=== PATIENT | female | born 1975 | race Caucasian/White ===

== ENCOUNTER 2022-05-02 09:47 | Day surgery (SDC) | payer OTHER, SELFPAY ==
[2022-04-26 08:35] LABS: Hematocrit 37.2 % (37-47); Hemoglobin 11.9 g/dL (12.0-15.0); Mean Corpuscular Hgb 29.7 pg (27.0-32.0); Mean Corpuscular Volume 92.8 fL (81-99); Mean Platelet Vol. 9.3 fl (6.2-12.0); Platelet Count 305 K/mm3 (150-450); RBC Distribution Width CV 13.9 % (11.6-14.6); RBC Distribution Width SD 47.8 fl (35.1-43.9); Red Blood Count 4.01 M/mm3 (4.2-5.4); White Blood Count 9.2 K/mm3 (4.4-11.0)
--- NOTE | 2022-05-02 | EMB_PTH ---
PATIENT: RACHEL ARRIAGA LOC: [facility] [place] U#:[id number] AGE/SX: 47/F ROOM: RE05/02/[address]: Dr. Kerry Brown DO : 1975 BED: DIS: 05/02/2022 SPEC #: [id number] RECD: 05/02/22 13:26 STATUS: EDITH KYLEE #: [id number] RAFAT: 05/02/22 00:[address]: Kerry Brown DEPT: SURGICAL PATHOLOGY RECD BY: Bobby Sheffield ENTERED: 05/02/22 13:26 SP TYPE: ENDOM BX/C CLINT DR: Dr. Alberto Greene MD Tissues: Endometrium, NOS Procedures: Surgery Specimen Level IV HEADER OPERATION: Hysteroscopy, D & C, IUD insertion PRE-OP DIAGNOSIS: Abnormal uterine bleeding, polyp TISSUE SUBMITTED: Endometrial curettings MICROSCOPIC DIAGNOSIS Endometrial curettings: Simple endometrial hyperplasia without atypia. Fragments of benign ecto- and endocervical mucosa with chronic inflammation. TONA:rodnye 05/03/2022 MICROSCOPIC DESCRIPTION Slides are reviewed. GROSS DESCRIPTION Received in fixative is one container labeled with the patient's name and designated endometrial curettings. The specimen consists of multiple fragments of pink hemorrhagic soft tissue that in aggregate measure 5 x 3 x 0.2 cm. The specimen is totally submitted in two cassettes. / TONA:rodney 05/02/2022 TC:5 CPT: 90340
[2022-05-02 10:19] LABS: Internal QC Validated? YES +Cl - CLEAR BKGD; Pregnancy, Urine Negative Negative
[2022-05-02 10:20] VITALS: BP 122/71; PULSE 86; RESP 16; TEMP 36.8; O2SAT 99; BMI 39.8
[2022-05-02] MEDS: Lactated Ringers 1,000 ML 15 ML IV (10:27)
[2022-05-02 10:56] LABS: Bedside Glucose 102 mg/dL (74-106)
[2022-05-02] MEDS: Lidocaine 1% (20 ml mdv) 20 ML Vial (12:14)
--- NOTE | 2022-05-02 12:27 | DCINST_ITS ---
Discharge Instructions Diet Discharge Diet: No restrictions Activity Discharge Activity: May Drive (once you are more than 24 hours out from surgery) and May Shower (once you are more than 24 hours out from surgery) May resume sexual activity in: 1 week (no tampons, intercourse, hot tubs, baths, or pools) Weight Bearing Status: Weight bearing as tolerated Lifting Restrictions: none Dressing / Incision Call your doctor if you observe: Fever of 101 or Higher, Coldness, Increased Pain, Numbness or Tingling, Change in Color, Inability to urinate, Inability to have a bowel movement, Using more than 1 pad per hour, Shortness of breath, Dizziness, Fainting spells, Swelling in the ankles, Chest pain, Increased palpitations (irregular heartbeat), Calf discomfort and Uncontrolled pain Follow Up Care Please Follow Up With: Kerry Brown DO When: 1-2 weeks Test Results: Test results from this visit will be discussed in further detail at your follow- up appointment, if applicable. Discharge Plan Admission Primary Reason for Your Visit: surgery Attending Provider: Kerry Brown Primary Care Provider: Alberto Greene Instructions Patient Instructions: Dilation and Curettage Discharge Orders/Prescriptions Prescriptions: New ibuprofen 600 mg tablet 600 mg PO Q6H PRN (Reason: pain) Qty: 30 0RF Continued loratadine-pseudoephedrine [Claritin-D 24 Hour] 10-240 mg Tablet Extended Release 24 Hr 1 tab PO DAILY omeprazole 20 mg Capsule,Delayed Release(Dr/Ec) 20 mg PO DAILY mupirocin 2 % ointment 3 applic TOPICAL TID escitalopram oxalate 10 mg tablet 10 mg PO DAILY Trulicity 0.75 mg/0.5 mL pen injector 7.5 mg SUBCUT QWEEK Label Comments: INJECT 0.75 MG SUBCUTANEOUSLY ONE TIME A WEEK. INJECT DOSE ONCE PER WEEK. DISCARD PEN AFTER Rx Instructions: sundays Referrals / Follow Up: Alberto Greene MD [Primary Care Provider] - Disposition Disposition (needs filled in before D/C Order can be placed): Home, Self Care
--- NOTE | 2022-05-02 12:31 | OP.PCM_ITS ---
Problems Associated Problem List Diagnoses (1) DUB (dysfunctional uterine bleeding): Report of Operation Date of Procedure: 05/02/22 Pre-Operative Diagnosis: DUB Post-Operative Diagnosis: DUB Surgery/Procedure Performed:: Hysteroscopy, D&C, Mirena IUD insertion Description of Surgical Findings:: Uterus sounded to 10 cm. Retroverted uterus. No polyps or fibroids noted. Surgeon: Kerry Brown Type of Anesthesia: MAC Special Medications: None Specimen's removed: Endometrial curretings Drains: None Estimated Blood Loss (mL): < 50 cc Fluids Replaced: 150 cc deficit Description of Procedure: The patient was taken to the operating room where MAC anesthesia was induced and found to be adequate. She was prepped and draped in the dorsal lithotomy position using yellowfin stirrups. A weighted speculum was placed in the vagina to expose the cervix. The anterior lip of the cervix was grasped with single- tooth tenaculum. 1% lidocaine was injected circumferentially around the cervix. The cervix was serially dilated to accommodate the Symphion hysteroscope. The Symphion hysteroscope was advanced to the fundus of the uterus. Normal saline was used as distention media to distend the uterus. No polyps or fibroids were noted. The uterine cavity was normal appearing. Bilateral tubal ostia were visualized. The endometrium was normal-appearing. No endocervical polyps were noted upon removal of the hysteroscope. The hysteroscope was removed. Sharp curettage was performed and endometrial curettings were sent to pathology for review. Uterus sounded to 10 cm. The Mirena IUD device was set and placed in the usual sterile fashion. The IUD strings were trimmed to 2 cm in length. All instruments were removed from the vagina. Bleeding was hemostatic. Vaginal sweep was performed. The patient was taken to the recovery room in stable condition. Instrument and sponge counts were correct. Grafts/Implants Used: None Procedure Start Time: 11:54 Procedure Stop Time: 12:14 Complications None Admit VTE Documentation VTE Present on Admission: No VTE Mechan Device Prophylaxis: SCD's
[2022-05-02 12:35] VITALS: BP 114/60; BP 122/71; PULSE 74; RESP 16; TEMP 36.6; O2SAT 99
[2022-05-02 12:40] VITALS: BP 117/64; BP 122/71; PULSE 76; RESP 16; O2SAT 96
[2022-05-02 12:45] VITALS: BP 116/68; BP 122/71; PULSE 71; RESP 16; O2SAT 96
[2022-05-02 12:50] VITALS: BP 111/64; BP 122/71; PULSE 70; RESP 16; TEMP 36.4; O2SAT 95
[2022-05-02 13:34] VITALS: BP 122/71
== END 2022-05-02 13:54 | disposition home or self-care (01) ==
LOC: SDC 09:47 → AC 09:48
PROVIDERS: PCP Family Medicine; Referring Provider Obstetrics & Gynecology; Visit Provider Obstetrics & Gynecology
PROC: 0UB98ZZ Excision of Uterus, Via Natural or Artificial Opening Endoscopic (ICD-10-PCS; CPT 58558; principal; 2022-05-02 11:15)
DX: N85.01 Benign endometrial hyperplasia (principal); E11.9 Type 2 diabetes mellitus without complications; N93.8 Other specified abnormal uterine and vaginal bleeding; Z30.430 Encounter for insertion of intrauterine contraceptive device; K21.9 Gastro-esophageal reflux disease without esophagitis; Z79.84 Long term (current) use of oral hypoglycemic drugs; Z79.899 Other long term (current) drug therapy
CPT/HCPCS: 58558; 58300; 00952; 36415; 81025; 82962; 85027; 86850; 86900; 86901; 88305; J7120; J2405

== ENCOUNTER → 2023-03-04 | Outpatient (CLI) | payer OTHER, SELFPAY ==
--- NOTE | 2023-03-04 | FLU_PTH ---
PATIENT: RACHEL ARRIAGA LOC: [facility] U#:[id number] AGE/SX: 48/F ROOM: RE03/04/[address]: Dr. Savi Gillette MD : 1975 BED: DIS: 03/04/2023 SPEC #: [id number] RECD: 03/04/23 13:08 STATUS: EDITH PICHARDO #: [id number] RAFAT: 03/04/23 00:[address]: Savi Gillette DEPT: CYTOLOGY RECD BY: Bobby Sheffield ENTERED: 03/04/23 13:09 SP TYPE: Fluid OTHR DR: Dr. Alberto Greene MD Tissues: A - Thyroid gland, NOS B - Thyroid gland, NOS Procedures: Special Stain Group II Surgery Specimen Level IV Cytospin Fluid HEADER OPERATION: Fine needle aspiration left thyroid PRE-OP DIAGNOSIS: Abnormal thyroid ultrasound TISSUE SUBMITTED: A - FNA left thyroid fluid, B - FNA left thyroid x6 slides DIAGNOSIS CYTOLOGY A. Fine needle aspiration, left thyroid nodule fluid (cytospin and cell block): Negative for malignant cells. B. Fine needle aspiration, left thyroid nodule (smears): Benign, consistent with colloid nodule ([place] Category II). See comment. AM:rodney 03/05/2023 COMMENT A. The specimen primarily contains blood and very rare benign follicular cells. B. The specimen is adequate for evaluation. The [place] System for thyroid diagnostic categorization was used in the evaluation of this case. CYTOLOGY STUDY Slides are reviewed. CYTOLOGY GROSS A - Received is 30 ml of light brown cloudy fluid labeled with the patient's name and and designated per the requisition as left thyroid. Submitted for cytology preparation including cell block. B - Received are six smears labeled with the patient's name and designated per the requisition as left thyroid. Submitted for staining. / rodney 03/04/2023 TC:5 CPT: 81980 x2, 16950
== END | disposition home or self-care (01) ==
PROVIDERS: PCP Family Medicine; Visit Provider Surgery
DX: R93.89 Abnormal findings on diagnostic imaging of other specified body structures (principal)
CPT/HCPCS: 88108; 88305; 88313